=== PATIENT | female | born 1955 ===

== ENCOUNTER 2018-04-20 14:32 | Emergency (ER) | payer MEDICARE, BC ==
[2018-04-20 14:33] VITALS: BMI 26.0
[2018-04-20 14:48] VITALS: TEMP 97.5; O2SAT 100
--- NOTE | 2018-04-20 15:28 | ED PDOC ---
HPI: SOB/CHF/COPD Time Seen by Provider: 04/20/18 15:05 Chief Complaint (Nursing): Respiratory Distress Chief Complaint (Provider): Shortness of breath History Per: Patient History/Exam Limitations: no limitations Onset/Duration Of Symptoms: Days (1x week), Other (progressively worsening) Current Symptoms Are (Timing): Still Present Severity: Moderate Additional Complaint(s): 63 year old female with a past medical history of sarcoidosis and hypertension presents to the ED for an evaluation of shortness of breath progressively worsening for 1x week. Patient reports having associated bodyaches, a mild runny nose, and a dry cough, worsening weakness and fatigue, and flu-like symptoms. Patient denies having chest pressure, but reports having a pain when she coughs. Patient also reports having chills and a decrease in appetite. Patient reports that she has a sick contact at home who had flu-like symptoms last week. Patient reports taking antibiotics (unsure of name) that a relative had, with no improvement of symptoms. Otherwise patient denies having fevers, leg swelling, rashes, vomiting, and diarrhea. PMD: Steve Squires MD Past Medical History Reviewed: Historical Data, Nursing Documentation, Vital Signs Vital Signs: Last Vital Signs Temp 97.5 F L 04/20/18 14:46 Pulse 58 L 04/20/18 14:46 Resp 19 04/20/18 14:46 BP 144/70 04/20/18 14:46 Pulse Ox 100 04/20/18 14:46 CHRISTA Report Viewed: Yes - Medical History PMH: Anxiety, Arthritis, Asthma, Back Problems, HTN, Hypercholesterolemia, Osteoporosis, Chronic Pain (Right shoulder pain s/p injury) Denies: Chronic Kidney Disease Other PMH: sarcoidosis - Surgical History Surgical History: Appendectomy Other surgeries: knee surgery, hip surgery - Family History Family History: States: Unknown Family Hx - Social History Ex-Smoker (has not smoked in the last 12 months): Yes (former heavy smoker 15x years ago) Alcohol: Occasional Drugs: Denies - Immunization History Hx Tetanus Toxoid Vaccination: No Hx Influenza Vaccination: Yes Hx Pneumococcal Vaccination: Yes - Home Medications Home Medications: Ambulatory Orders Medication Instructions Recorded Alprazolam [Xanax] 2 mg PO TID 12/15/15 Carisoprodol [Soma] 350 mg PO BID 12/15/15 Gabapentin 300 mg PO TID 12/15/15 Lidocaine 5% [Lidoderm] 1 ea TD DAILY #10 patch 12/15/15 oxyCODONE [oxyCODONE Immediate 30 mg PO TID 12/15/15 Release Tab] Lisinopril [Zestril] 5 mg PO DAILY 04/03/16 Cephalexin [Keflex] 500 mg PO Q6 #28 capsule 01/12/17 Fentanyl 1 each TD 01/12/17 Ondansetron ODT [Zofran ODT] 1 odt PO BID PRN #10 odt 01/21/17 Clindamycin [Cleocin] 300 mg PO TID #30 cap 02/11/17 Mupirocin 2% Cream [Bactroban 2%] 30 gm EXT TID #3 tube 02/11/17 Naproxen [Naprosyn] 500 mg PO BID #20 tab 02/11/17 - Allergies Allergies/Adverse Reactions: Allergies Allergy/AdvReac Type Severity Reaction Status Date / Time acetaminophen Allergy ITCHING Verified 01/21/17 20:37 [From Tylenol-Codeine] codeine Allergy ITCHING Verified 01/21/17 20:37 [From Tylenol-Codeine] Review of Systems ROS Statement: Except As Marked, All Systems Reviewed And Found Negative Constitutional: Positive for: Chills, Weakness (and fatigue), Other (bodyaches). Negative for: Fever ENT: Positive for: Nose Discharge (mild runny nose) Cardiovascular: Positive for: Chest Pain (with coughing. otherwise denies chest pressure) Respiratory: Positive for: Cough (dry), Shortness of Breath Gastrointestinal: Positive for: Other (decrease in appetite). Negative for: Vomiting, Diarrhea Musculoskeletal: Negative for: Other (leg swelling) Skin: Negative for: Rash Physical Exam - Reviewed Nursing Documentation Reviewed: Yes Vital Signs Reviewed: Yes - Physical Exam Appears: Positive for: Non-toxic, No Acute Distress. Negative for: Well (tired appearing) Head Exam: Positive for: ATRAUMATIC, NORMOCEPHALIC Skin: Positive for: Warm, Dry, Pallor Eye Exam: Positive for: EOMI, PERRL ENT: Negative for: Pharyngeal Erythema, Tonsillar Exudate Neck: Positive for: Painless ROM, Supple Cardiovascular/Chest: Positive for: Bradycardia (regular rhythm). Negative for: Edema Respiratory: Positive for: Wheezing (end expiratory wheeze and rhonchi). Negative for: Respiratory Distress Gastrointestinal/Abdominal: Positive for: Soft. Negative for: Tenderness Back: Positive for: Normal Inspection. Negative for: Muscle Spasm Extremity: Positive for: Normal ROM. Negative for: Deformity Lymphatic: Negative for: Adenopathy Neurologic/Psych: Positive for: Alert, Oriented (3x). Negative for: Motor/S ensory Deficits - Laboratory Results Result Diagrams: 04/20/18 15:30 04/20/18 15:30 - ECG O2 Sat by Pulse Oximetry: 100 (RA) Pulse Ox Interpretation: Normal - CT Scan/US CTA chest for PE with IV contrast Other Rad Studies (CT/US): Read By Radiologist, Radiology Report Reviewed (see MDM note) Medical Decision Making Medical Decision Makin:05 Initial impression: 63 year old female with shortness of breath. Differential diagnoses include, but are not limited to influenza, pneumonia, CHF, bronchospasm, and asthma. Initial plan: * XRay chest portable * EKG * type and screen * ABG shock panel * b-type natriuretic peptide * CMP * magnesium * phosphorous * troponin I * CBC with differential * blood culture * O2 via nasal cannula * influenza AB * reevaluation 18:28 CTA chest with IV contrast for PE read and reviewed by radiologist FINDINGS: PULMONARY ARTERIES No evidence of central or segmental pulmonary embolism is seen. AORTA There is no evidence for aneurysm or dissection of the thoracic aorta. LUNGS There is ill-defined parenchymal density in both upper lungs measuring approximately 2.9 x 1.6 cm at the right upper lobe and 3.1 x 1.8 cm at the left upper lobe. Smaller parenchymal nodule seen within both lungs. Findings are likely related to patient's known sarcoidosis. PLEURAL SPACES No pneumothorax evident. No pleural effusions. HEART Normal heart size. No significant pericardial effusion. LYMPH NODES There is mild bilateral hilar as well as paratracheal and anterior mediastinal lymphadenopathy. BONES No focal osseous abnormality or acute fracture. UPPER ABDOMEN Images of the upper abdomen are unremarkable. IMPRESSION: Ill-defined parenchymal masses both upper lungs measuring 2.9 x 1.6 cm right upper lobe and 3.1 x 1.8 cm left upper lobe small parenchymal nodules all compatible with sarcoidosis. Mild hilar and paratracheal and anterior mediastinal lymphadenopathy. No pulmonary embolic disease identified. Clinical correlation advised. Labs demonstrate mild leukocytosis. No emergently significant abnormalities Scribe Attestation: Documented by Eugenia Carranza, acting as a scribe for Agnes Joseph MD. Provider Scribe Attestation: All medical record entries made by the Scribe were at my direction and personally dictated by me. I have reviewed the chart and agree that the record accurately reflects my personal performance of the history, physical exam, medical decision making, and the department course for this patient. I have also personally directed, reviewed, and agree with the discharge instructions and disposition Disposition - Clinical Impression Clinical Impression: Weakness, Influenza-like illness Counseled Patient/Family Regarding: Studies Performed, Diagnosis, Need For Followup - Disposition Referrals: Steve Squires MD [IM] - 04/21/18 Disposition: Routine/Home Disposition Time: 19:00 Condition: STABLE Additional Instructions: PLEASE REST AND CONTINUE TO DRINKG PLENTY OF HYDRATING FLUIDS FOLLOWUP WITH YOUR DOCTOR IN 24-48 HOURS FOR REEVALUATION Instructions: Viral Syndrome (DC), Weakness (ED) Print Language: TURKMEN
[2018-04-20 15:35] LABS: ABG ALLEN TEST YES; ARTERIAL BLOOD GAS HCO3 29.1 mmol/L (21-28); ARTERIAL BLOOD GAS O2 SAT 100.3 % (95-98); ARTERIAL BLOOD GAS PCO2 46 mm/Hg (35-45); ARTERIAL BLOOD GAS PH 7.43 (7.35-7.45); ARTERIAL BLOOD GAS PO2 112 mm/Hg (80-100); ARTERIAL BLOOD GAS TCO2 31.9 mmol/L (22-28)
[2018-04-20 15:40] LABS: BASO % 0.4 % (0.0-2.0); EOS # 0.1 K/uL (0.0-0.7); EOS % 2.3 % (0.0-4.0); HEMOGLOBIN 12.3 g/dL (12.0-16.0); LYMPH # 0.7 K/uL (1.0-4.3); LYMPH % 17.9 % (20.0-40.0); MEAN CORPUSCULAR HEMOGLOBIN 31.2 pg (27.0-31.0); MEAN CORPUSCULAR HGB CONC 32.9 g/dL (33.0-37.0); MEAN PLATELET VOLUME 7.1 fl (7.2-11.7); MONO # 0.4 K/uL (0.0-0.8); MONO % 9.6 % (0.0-10.0); NEUT # 2.7 K/uL (1.8-7.0); NEUT % 69.8 % (50.0-75.0); NRBC % 0.1 % (0.0-0.0); RBC 3.93 Mil/uL (3.80-5.20); RED CELL DISTRIBUTION WIDTH 13.7 % (11.5-14.5); WHITE BLOOD COUNT 3.9 K/uL (4.8-10.8)
[2018-04-20 15:45] LABS: INR 0.9; PROTHROMBIN TIME 10.3 Seconds (9.8-13.1)
[2018-04-20 15:48] LABS: PARTIAL THROMBOPLASTIN TIME 31.1 Seconds (25.6-37.1)
--- NOTE | 2018-04-20 15:58 | RAD ---
Date of service: 04/20/2018 HISTORY: shortness of breath COMPARISON: No prior. FINDINGS: LUNGS: Right midlung linear density, likely scarring. No focal consolidation. PLEURA: No significant pleural effusion identified, no pneumothorax apparent. CARDIOVASCULAR: Aortic atherosclerotic calcifications. Cardiomediastinal silhouette enlarged. OSSEOUS STRUCTURES: Spinal degenerative changes. VISUALIZED UPPER ABDOMEN: Normal. OTHER FINDINGS: None. IMPRESSION: No active disease.
[2018-04-20 16:01] LABS: ALB/GLOB RATIO 1.2 (1.0-2.1); ALBUMIN 3.9 g/dL (3.5-5.0); BLOOD UREA NITROGEN 23 mg/dl (7-17); CALCIUM 9.3 mg/dL (8.4-10.2); GFR NON-AFRICAN AMERICAN > 60
[2018-04-20 16:11] LABS: ALT/SGPT 23 U/L (9-52); AST/SGOT 28 U/L (14-36); B-TYPE NATRIURETIC PEPTIDE 311 pg/ml (0-900)
[2018-04-20] MEDS ORDERED: Sodium Chloride 0.9% 1,000 ML IV STA (16:19)
[2018-04-20] MEDS ORDERED: Oxycodone/Acetaminophen 5/325 mg Tab PO STA (16:40)
[2018-04-20] MEDS ORDERED: Sodium Chloride 0.9% 50 ML IV ONE (16:42)
[2018-04-20] MEDS ORDERED: Iodixanol 320 MG/ML 100 ML BOTTLE IV ONE (16:42)
[2018-04-20] MEDS ORDERED: Oxycodone/Acetaminophen 5/325 mg Tab ONE (16:48)
[2018-04-20 20:05] VITALS: BP 135/76; PULSE 63; RESP 18
--- NOTE | 2018-04-21 09:12 | CARD ---
APPROVED REPORT Date of service: 04/20/2018 EKG Measurement Heart [id number] <Conclusion> Sinus bradycardia Incomplete RBBB Borderline ECG
--- NOTE | 2018-04-21 11:11 | CT ---
Date of service: 04/20/2018 PROCEDURE: CT Chest with contrast (Pulmonary Angiogram) HISTORY: sob h/o sarcoidosis r/o PE COMPARISON: Frontal chest radiograph 04/20/2018. TECHNIQUE: Axial computed tomography images were obtained of the chest in the pulmonary arterial phase of enhancement. Coronal and sagittal reformatted images were created and reviewed. Intravenous contrast dose: Omnipaque 300, 100 cc Radiation dose: Total exam DLP = 373.38 mGy-cm. This CT exam was performed using one or more of the following dose reduction techniques: Automated exposure control, adjustment of the mA and/or kV according to patient size, and/or use of iterative reconstruction technique. FINDINGS: Patient is unable to raise her arms which is a normal protocol for chest CT and unfortunately this generates extensive artifacts throughout the chest including the mediastinum and vascular anatomy. PULMONARY ARTERIES: No definitive pattern of pulmonary embolus is appreciable with artifacts scattered throughout the pulmonary arterial anatomy. AORTA: No acute findings. No thoracic aortic aneurysm. Calcific atherosclerotic changes are seen related to the thoracic aorta. LUNGS: Fibrotic changes are identified scattered bilaterally as well as numerous tiny sub cm noncalcified nodules throughout all lobes of both lungs. At the left upper lobe in image 34 series 5, there is a 2.9 x 1.6 cm lesion with somewhat irregular peripheral margins. A similar lesion seen in the right upper lobe partially abutting the right major fissure measuring 3.1 x 1.8 cm. There is a known history of sarcoidosis with these nodular changes likely a function of that diagnosis rather than neoplasm. Central airways are clear. PLEURAL SPACES: Unremarkable. No effusion or pneumothorax. HEART: There is cardiomegaly. No pleural or pericardial effusion is it identified. No pulmonary vascular congestion evident. LYMPH NODES: There are a few mildly enlarged partially calcified lymph nodes identified including right paratracheal and subcarinal spaces as well as left hilum. BONES, CHEST WALL: Unremarkable. No fracture or destructive lesion OTHER FINDINGS: Unremarkable. IMPRESSION: 1. No CT evidence to indicate pulmonary embolus. 2. Irregular nodular foci are seen at the bilateral apices with 1 in each upper lobe near the apex. Scattered bilateral small pulmonary nodules are identified as well as infrequent partially calcified mediastinal lymph nodes. Limited biapical fibrosis noted. Overall pattern may be consistent with sarcoidosis in the proper clinical setting, particularly in a patient with a known history of sarcoidosis.
== END 2018-04-20 19:47 | disposition home or self-care (01) ==
LOC: H.ER 14:32
DX: J11.1 Influenza due to unidentified influenza virus with other respiratory manifestations (principal); R53.1 Weakness; D86.9 Sarcoidosis, unspecified; G89.29 Other chronic pain; I10 Essential (primary) hypertension; J44.9 Chronic obstructive pulmonary disease, unspecified; Z87.891 Personal history of nicotine dependence; Z88.6 Allergy status to analgesic agent; Z88.5 Allergy status to narcotic agent; M81.0 Age-related osteoporosis without current pathological fracture
CPT/HCPCS: 36600; 71045; 71275; 80053; 82803; 82948; 83735; 83880; 84100; 84484; 85025; 85610; 85730; 87040; 87804; 93005; 96360; 99284; J7030; Q9967